=== PATIENT | female | born 1965 | race Caucasian/White ===

== ENCOUNTER → 2024-07-16 10:19 | Outpatient (REF) | payer BC, SELFPAY | LOC: HWRAD 10:19 | PROVIDERS: ATTENDING PHYSICIAN Urology; FAMILY PHYSICIAN Family Medicine | DX: N32.81 Overactive bladder (principal); N39.3 Stress incontinence (female) (male); M62.89 Other specified disorders of muscle; N95.8 Other specified menopausal and perimenopausal disorders | CPT/HCPCS: 76770; 76856 ==

== ENCOUNTER → 2024-08-02 15:14 | Outpatient (REF) | payer BC, SELFPAY | LOC: HWWDC 15:14 | PROVIDERS: ATTENDING PHYSICIAN Family Medicine | DX: Z12.31 Encounter for screening mammogram for malignant neoplasm of breast (principal) | CPT/HCPCS: 77063; 77067 ==

== ENCOUNTER 2025-06-09 06:35 | Outpatient (RCR) | payer BC, SELFPAY | END 2025-06-09 23:59 | disposition home or self-care (01) | LOC: RPT 06:35 | PROVIDERS: ATTENDING PHYSICIAN Family Medicine | DX: M43.06 Spondylolysis, lumbar region (principal); Z73.6 Limitation of activities due to disability; R32 Unspecified urinary incontinence | CPT/HCPCS: 97110; 97162; 97530 ==

== ENCOUNTER 2025-07-07 07:26 | Outpatient (RCR) | payer BC, SELFPAY | END 2025-07-07 09:33 | disposition home or self-care (01) | LOC: RPT 07:26 | PROVIDERS: ATTENDING PHYSICIAN Family Medicine | DX: M43.06 Spondylolysis, lumbar region (principal); Z73.6 Limitation of activities due to disability; R32 Unspecified urinary incontinence | CPT/HCPCS: 97010; 97110 ==

== ENCOUNTER 2025-08-19 07:14 | Day surgery (SDC) | payer BC, SELFPAY ==
[2025-08-19] VITALS (10 sets, daily range): BP systolic 98–134; BP diastolic 57–73; BMI 30.3
[2025-08-19] MEDS: NORMOSOL-R/PLASMALYTE-A 1000 IV (10:26)
== END 2025-08-19 14:35 | disposition home or self-care (01) ==
LOC: SDS 07:14
PROVIDERS: ATTENDING PHYSICIAN Obstetrics & Gynecology
DX: N39.3 Stress incontinence (female) (male) (principal); N36.41 Hypermobility of urethra
CPT/HCPCS: 57288; C1771